=== PATIENT | female | born 1935 | race Caucasian/White ===

== ENCOUNTER 2021-02-01 10:49 | Observation (INO) | payer MEDICARE ==
[~2021-02-01] VITALS: Ht 147.3 cm; Wt 57.8 kg
--- NOTE | 2021-02-01 11:37 | NUR ---
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
[2021-02-01 12:01] LABS: BASOPHILS % (AUTO) 1 % (0-1); EOSINOPHILS % (AUTO) 1 % (1-7); LYMPHOCYTES % (AUTO) 20 % (22-44); MEAN CORPUSCULAR HEMOGLOBIN 20.4 pg (27.0-34.8); MEAN CORPUSCULAR HGB CONC 32.2 g/dL (32.4-35.8); MEAN PLATELET VOLUME 8.8 fL (7.4-10.4); MONOCYTES % (AUTO) 7 % (2-9); NEUTROPHILS % (AUTO) 72 % (42-75); PLATELET COUNT 342 x10^3/uL (130-400); RED BLOOD COUNT 6.03 x10^6/uL (3.82-5.3); RED CELL DISTRIBUTION WIDTH 17.2 % (9.6-15.2)
[2021-02-01 12:08] LABS: INTERNATIONAL NORMALIZED RATIO 1.26 (0.93-1.1); PROTHROMBIN TIME 13.3 Seconds (9.6-11.5)
[2021-02-01 12:30] LABS: ANISOCYTOSIS 2+
[2021-02-01 12:31] LABS: HYPOCHROMIA 1+; SCHISTOCYTES 1+; TARGET CELLS 1+
[2021-02-01 12:32] LABS: OVALOCYTES 2+
[2021-02-01 12:33] LABS: <PLATELET ESTIMATE> ADEQUATE; <PLT MORPHOLOGY> NORMAL PLT MORPH
[2021-02-01 12:34] LABS: MICROCYTOSIS 3+
[2021-02-01 12:35] LABS: ANION GAP 6 mmol/L (5-15); CALCIUM 9.2 mg/dL (8.5-10.1); CHLORIDE 108 mmol/L (98-107)
[2021-02-01 12:36] LABS: ALANINE AMINOTRANSFERASE 21 U/L (12-78)
[2021-02-01 12:37] LABS: ALKALINE PHOSPHATASE 66 U/L (45-117)
[2021-02-01 12:38] LABS: ALBUMIN 3.5 g/dL (3.4-5.0); TROPONIN I < 0.015 ng/mL (0.000-0.045)
--- NOTE | 2021-02-01 13:21 | NUR ---
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
--- NOTE | 2021-02-01 13:54 | NUR ---
PT IN US NOW
[2021-02-01 15:34] LABS: MICROSCOPIC AUTO
[2021-02-01] MEDS ORDERED: MELATONIN 5 MG TABLET PO PRN (16:30)
[2021-02-01] MEDS ORDERED: ONDANSETRON 2MG/ML, 2ML IVPush PRN (16:30)
[2021-02-01] MEDS ORDERED: ACETAMINOPHEN 325 MG TABLET PO PRN (16:30)
[2021-02-01] MEDS ORDERED: ONDANSETRON ODT 4 MG PO PRN (16:30)
[2021-02-01] MEDS ORDERED: DILTIAZEM 5 MG/ML, 5ML IVPush PRN (16:30)
[2021-02-01] MEDS ORDERED: POLYETHYLENE GLYCOL 17 GM PACKET PO PRN (16:30)
[2021-02-01] MEDS ORDERED: LABETALOL 5MG/ML, 20ML IVPush PRN (16:30)
[2021-02-01] MEDS ORDERED: BISACODYL 10 MG SUPP PR PRN (16:30)
[2021-02-01] MEDS ORDERED: ENALAPRILAT 1.25 MG/ML, 2ML IVPush PRN (16:30)
[2021-02-01 18:03] VITALS: BP 163/87
[2021-02-01] MEDS: metFORMIN 500 MG TABLET PO SCH (18:50)
[2021-02-01] MEDS: RIVAROXABAN 15 MG TABLET PO SCH (18:51)
[2021-02-01 19:55] VITALS: BP 148/80
[2021-02-01 20:00] VITALS: BP 149/79
[2021-02-01 20:02] VITALS: BP 127/74
[2021-02-01] MEDS: PROPAFENONE 150 MG TABLET PO SCH (20:43)
[2021-02-01] MEDS ORDERED: PRAVASTATIN 20 MG TABLET PO SCH (21:00)
[2021-02-02 01:45] VITALS: BP 134/72
[2021-02-02] MEDS: PROPAFENONE 150 MG TABLET PO SCH ×2 (04:18→14:29)
[2021-02-02 04:49] LABS: BASOPHILS % (AUTO) 1 % (0-1); EOSINOPHILS % (AUTO) 1 % (1-7); LYMPHOCYTES % (AUTO) 29 % (22-44); MEAN CORPUSCULAR HEMOGLOBIN 20.7 pg (27.0-34.8); MEAN CORPUSCULAR HGB CONC 32.9 g/dL (32.4-35.8); MEAN PLATELET VOLUME 8.5 fL (7.4-10.4); MONOCYTES % (AUTO) 13 % (2-9); NEUTROPHILS % (AUTO) 56 % (42-75); PLATELET COUNT 282 x10^3/uL (130-400); RED BLOOD COUNT 5.33 x10^6/uL (3.82-5.3); RED CELL DISTRIBUTION WIDTH 16.6 % (9.6-15.2)
[2021-02-02 05:00] LABS: ANION GAP 6 mmol/L (5-15); CALCIUM 8.8 mg/dL (8.5-10.1); CHLORIDE 111 mmol/L (98-107); CREATININE 0.84 mg/dL (0.55-1.02)
[2021-02-02] MEDS ORDERED: POTASSIUM CHLORIDE 20 MEQ TAB.ER.PRT PO SCH (08:00)
[2021-02-02 08:11] VITALS: BP 155/80
[2021-02-02 08:39] VITALS: BP 147/56
[2021-02-02] MEDS ORDERED: SENNA/DOCUSATE TABLET PO SCH (09:00)
[2021-02-02] MEDS ORDERED: FUROSEMIDE 40 MG TABLET PO SCH (09:00)
[2021-02-02] MEDS ORDERED: PROP225C3 PO (14:07)
[2021-02-02] MEDS ORDERED: FURO-93 PO (14:07)
[2021-02-02] MEDS ORDERED: METF500S5 PO (14:07)
[2021-02-02] MEDS ORDERED: POTA99TA24 PO (14:07)
[2021-02-02] MEDS ORDERED: PRAV20TA2 PO (14:07)
[2021-02-02] MEDS ORDERED: RIVA15TA PO (14:07)
[2021-02-02] MEDS ORDERED: DOCU-131 PO (14:11)
[2021-02-02] MEDS ORDERED: MULT-508 PO (14:11)
[2021-02-02] MEDS ORDERED: PSYL0.4C2 PO (14:11)
[2021-02-02] MEDS ORDERED: BIOT0.5P PO (14:11)
[2021-02-02] MEDS ORDERED: CA C1TAB63 PO (14:11)
[2021-02-02 15:35] VITALS: BP 125/76
[2021-02-02] MEDS: RIVAROXABAN 15 MG TABLET PO SCH (16:58)
[2021-02-02] MEDS: metFORMIN 500 MG TABLET PO SCH (16:58)
== END 2021-02-02 17:55 | disposition home or self-care (01) ==
LOC: ED 11:20 → SUATTDRO 15:29 → INTOOBSV 16:05 → EDIP 16:05 → 4EST 17:58 → UNDODISIN 02-02 17:55
PROVIDERS: ADMIT Hospitalist; ATTEND Family Medicine
DX: R42 Dizziness and giddiness (principal); R20.2 Paresthesia of skin; M79.89 Other specified soft tissue disorders; I27.20 Pulmonary hypertension, unspecified; I10 Essential (primary) hypertension; I48.0 Paroxysmal atrial fibrillation; D68.69 Other thrombophilia; E11.9 Type 2 diabetes mellitus without complications; K21.9 Gastro-esophageal reflux disease without esophagitis; D56.9 Thalassemia, unspecified; H93.19 Tinnitus, unspecified ear; Z79.899 Other long term (current) drug therapy; Z66 Do not resuscitate; Z79.01 Long term (current) use of anticoagulants; Z79.84 Long term (current) use of oral hypoglycemic drugs
CPT/HCPCS: 36415; 70450; 70551; 80048; 80053; 81001; 82962; 83880; 84443; 84484; 85025; 85610; 87077; 87086; 87186; 93005; 93306; 93882; 93970; 99285; G0378